=== PATIENT | female | born 1960 | race Hispanic/Latino ===

== ENCOUNTER → 2024-03-06 11:52 | Outpatient (REF) | payer OTHER, SELFPAY ==
[2024-03-06 12:33] LABS: Hematocrit 42.2 % (37.0-47.0); Hemoglobin 13.6 g/dL (12.0-16.0); Mean Corp Hgb Conc. 32.2 g/dL (33.0-37.0); Mean Corpuscular Hgb 29.2 pg (27.0-31.0); Mean Corpuscular Volume 90.6 fL (81.0-99.0); Platelet Count 248 10^3/uL (130-400); Red Blood Cell Count 4.66 10^6/uL (4.20-5.40); Red Cell Dist. Width 12.5 % (11.5-14.5)
[2024-03-06 12:55] LABS: ALT (SGPT) 22 U/L (0-35); AST (SGOT) 24 U/L (14-36); Albumin 4.2 g/dl (3.5-5.0); Alkaline Phosphatase 90 U/L (38-126); Blood Urea Nitrogen 14 mg/dl (7-17); Calcium 9.7 mg/dl (8.4-10.2); Carbon Dioxide 30 mmol/L (22-30); Chloride 104 mmol/L (98-107); Glucose 96 mg/dl (70-99); HDL Cholesterol 86 mg/dl; LDL Cholesterol, Calculated 166 mg/dl; Potassium 4.3 mmol/L (3.5-5.1); Sodium 136 mmol/L (135-145); Total Bilirubin 0.5 mg/dl (0.2-1.3); Total Cholesterol 274 mg/dl (50-199); Total Protein 7.3 g/dl (6.3-8.2); Triglyceride 113 mg/dl (10-149); Very Low Density Lipoprotein 22 mg/dl (0-30); eGFR > 60.00
[2024-03-06 13:12] LABS: Free T4 1.04 ng/dl (0.78-2.19)
[2024-03-06 13:26] LABS: TSH 1.49 uIU/ml (0.47-4.68)
[2024-03-06 14:45] LABS: Glycohemoglobin (HgbA1c) 5.7 % (4.0-5.6)
== END ==
LOC: REG 11:52
PROVIDERS: ATTENDING PHYSICIAN Nurse Practitioner Adult Health
DX: Z12.11 Encounter for screening for malignant neoplasm of colon (principal); E03.9 Hypothyroidism, unspecified; E78.00 Pure hypercholesterolemia, unspecified; I10 Essential (primary) hypertension; Z83.3 Family history of diabetes mellitus
CPT/HCPCS: 36415; 80053; 80061; 83036; 84439; 84443; 85027

== ENCOUNTER → 2024-10-05 13:13 | Outpatient (REF) | payer OTHER, SELFPAY ==
[2024-10-05 14:15] LABS: Hematocrit 43.2 % (37.0-47.0); Hemoglobin 14.1 g/dL (12.0-16.0); Mean Corp Hgb Conc. 32.6 g/dL (33.0-37.0); Mean Corpuscular Hgb 29.1 pg (27.0-31.0); Mean Corpuscular Volume 89.1 fL (81.0-99.0); Mean Platelet Volume 10.8 fL (7.4-10.4); Platelet Count 271 10^3/uL (130-400); Red Blood Cell Count 4.85 10^6/uL (4.20-5.40); Red Cell Dist. Width 13.2 % (11.5-14.5); White Blood Cell Count 9.2 10^3/uL (4.8-10.8)
[2024-10-05 14:45] LABS: ALT (SGPT) 33 U/L (0-35); AST (SGOT) 28 U/L (14-36); Albumin 4.6 g/dl (3.5-5.0); Alkaline Phosphatase 94 U/L (38-126); Blood Urea Nitrogen 24 mg/dl (7-17); Calcium 9.6 mg/dl (8.4-10.2); Carbon Dioxide 29 mmol/L (22-30); Chloride 100 mmol/L (98-107); Glucose 85 mg/dl (70-99); HDL Cholesterol 93 mg/dl; LDL Cholesterol, Calculated 191 mg/dl; Potassium 4.8 mmol/L (3.5-5.1); Sodium 140 mmol/L (135-145); Total Bilirubin 0.6 mg/dl (0.2-1.3); Total Cholesterol 301 mg/dl (50-199); Triglyceride 86 mg/dl (10-149); Very Low Density Lipoprotein 17 mg/dl (0-30); eGFR > 60.00
[2024-10-05 14:58] LABS: Vitamin D, 25-OH*** 42.8 ng/mL (30-80)
[2024-10-05 15:12] LABS: TSH 5.99 uIU/ml (0.47-4.68)
[2024-10-06 09:04] LABS: Glycohemoglobin (HgbA1c) 5.9 % (4.0-5.6)
== END ==
LOC: CLINIC 13:13
PROVIDERS: ATTENDING PHYSICIAN Nurse Practitioner Adult Health
DX: I10 Essential (primary) hypertension (principal); E03.9 Hypothyroidism, unspecified; E78.00 Pure hypercholesterolemia, unspecified; Z12.11 Encounter for screening for malignant neoplasm of colon; Z83.3 Family history of diabetes mellitus; R79.89 Other specified abnormal findings of blood chemistry
CPT/HCPCS: 36415; 80053; 80061; 82306; 83036; 84439; 84443; 85027

== ENCOUNTER → 2024-10-07 14:14 | Outpatient (REF) | payer OTHER, SELFPAY | LOC: CLINIC 14:14 | PROVIDERS: ATTENDING PHYSICIAN Nurse Practitioner Adult Health | DX: Z12.11 Encounter for screening for malignant neoplasm of colon (principal) | CPT/HCPCS: 83520 ==

== ENCOUNTER → 2025-01-06 15:19 | Outpatient (REF) | payer OTHER, SELFPAY ==
[2025-01-06 16:55] LABS: TSH Reflex To Free T4 0.16 uIU/ml (0.47-4.68)
[2025-01-06 17:25] LABS: Free T4 1.57 ng/dl (0.78-2.19)
== END ==
LOC: REG 15:19
PROVIDERS: ATTENDING PHYSICIAN Internal Medicine
DX: E03.9 Hypothyroidism, unspecified (principal)
CPT/HCPCS: 36415; 84439; 84443

== ENCOUNTER → 2025-08-11 15:51 | Outpatient (REF) | payer OTHER, SELFPAY ==
[2025-08-11 17:42] LABS: Very Low Density Lipoprotein 17 mg/dl (0-30)
[2025-08-11 17:52] LABS: HDL Cholesterol 114 mg/dl; LDL Cholesterol, Calculated 77 mg/dl
== END ==
LOC: CLINIC 15:51
PROVIDERS: ATTENDING PHYSICIAN Internal Medicine
DX: E03.9 Hypothyroidism, unspecified (principal)
CPT/HCPCS: 36415; 80061; 84439; 84443